=== PATIENT | female | born 1995 | race Hispanic/Latino ===

== ENCOUNTER → 2019-09-21 | Outpatient (CLI) | payer OTHER ==
[~2019-09-21] MED LIST: PRILOSEC OTC20 MG PO
--- NOTE | 2019-09-21 10:23 | Diagnostic Imaging Report ---
EXAM: US ABDOMEN COMPLETE DATE: 09/21/2019 8:23 AM INDICATION: Abdominal pain COMPARISON: None FINDINGS: The visualized pancreas appears unremarkable. The liver is normal in size measuring 12.7 cm in length. Hepatic echogenicity is within normal limits. No focal hepatic abnormalities identified. The main portal vein is patent with antegrade flow and diameter 1.3 cm. The gallbladder is unremarkable. There is no evidence for cholelithiasis, gallbladder wall thickening, or pericholecystic fluid. There is no intra or extra hepatic biliary ductal dilatation. The common bile duct measures 3 mm. Sonographic Cordon's sign is negative. The spleen is normal in size measuring 11.5 cm in length and demonstrates an unremarkable sonographic appearance. The kidneys are normal in size measuring 11.3 cm is in length on the right and 10.9 cm in length on the left. Cortical thickness and echogenicity are within normal limits. There is no evidence for solid renal mass, hydronephrosis, or shadowing calculi. The visualized portions the IVC and aorta are within normal limits. There is no ascites visualized. IMPRESSION: Unremarkable abdominal ultrasound examination. Signed by: Dr. Justin Grajeda MD on 09/21/2019 10:20 AM
== END ==
LOC: US 08:11
PROVIDERS: ATTEND Internal Medicine Gastroenterology
DX: R10.10 Upper abdominal pain, unspecified (principal)
CPT/HCPCS: 76700

== ENCOUNTER → 2019-09-22 | Day surgery (SDC) | payer OTHER ==
[~2019-09-22] MED LIST changes: +FENTANYL CITRATE/PF 100MCG/2 ML INJ ONE; +METOCLOPRAMIDE HCL 10 MG/2ML VIAL ONE; +MIDAZOLAM HCL 2 MG/2 ML VIAL ONE; +PANTOPRAZOLE 40 MG 10ML VIAL ONE; +PROPOFOL IV EMULSION 10 MG/ML 50 ML VIAL ONE; +SODIUM CHLORIDE 0.9% INJ 10 ML VIAL ONE
[2019-09-22 12:10] VITALS: BP 123/76
--- OUTSIDE RECORDS SUMMARY | 2019-09-30 11:17 | XMS REPORT ---
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 Allergies, Adverse Reactions, Alerts Allergy Name Allergy Type Status Severity Reaction(s) Onset Date Inactive Date Treating Clinician Comments No Known Allergies DA Active U 2018-10-13 00:00:00 No Known Allergies DA Active U 2018-03-04 00:00:00 Medications This patient has no known medications. Results Test Description Test Time Test Comments Text Results Atomic Results Result Comments US ABDOMEN COMPLETE 2019-09-21 10:17:00 [facility] [address] [place] [id number] Patient Name: FITZ ALVAREZ MR #: [id number] : 1995 Age/Sex: 24/F Req #: [id number] Adm Physician: Ordered by: SARAH MORRISON MD Report #: [id number] Location: US Room/Bed: Procedure: [id number] US/US ABDOMEN COMPLETE Exam Date: 09/21/19 Exam Time: 0834 REPORT STATUS: Signed EXAM: US ABDOMEN COMPLETE DATE: 09/21/2019 8:23 AM INDICATION: Abdominal pain COMPARISON: None FINDINGS: The visualized pancreas appears unremarkable. The liver is normal in size measuring 12.7 cm in length. Hepatic echogenicity is within normal limits. No focal hepatic abnormalities identified. The main portal vein is patent with antegrade flow and diameter 1.3 cm. The gallbladder is unremarkable. There is no evidence for cholelithiasis, gallbladder wall thickening, or pericholecystic fluid. There is no intra or extra hepatic biliary ductal dilatation. The common bile duct measures 3 mm. Sonographic Cordon's sign is negative. The spleen is normal in size measuring 11.5 cm in length and demonstrates an unremarkable sonographic appearance. The kidneys are normal in size measuring 11.3 cm is in length on the right and 10.9 cm in length on the left. Cortical thickness and echogenicity are within normal limits. There is no evidence for solid renal mass, hydronephrosis, or shadowing calculi. The visualized portions the IVC and aorta are within normal limits. There is no ascites visualized. IMPRESSION: Unremarkable abdominal ultrasound examination. Signed by: Dr. Justin Grajeda MD on 09/21/2019 10:20 AM Dictated By: JUSTIN GRAJEDA MD 1020 Transcribed By: FELI on 09/21/19 1020 COPY TO: SARAH MORRISON MD
--- NOTE | 2019-11-07 12:27 | Operative Report ---
DATE OF PROCEDURE: 09/22/2019 SURGEON: Thaddeus Phelps MD PROCEDURE: EGD with biopsies. INDICATIONS FOR PROCEDURE: Upper abdominal pain, bloating, nausea, and vomiting. MEDICATIONS: The patient was done under MAC, please see anesthesiologist's note. PROCEDURE IN DETAIL: With the patient in the left lateral decubitus position, a flexible fiberoptic Olympus gastroscope was introduced into the esophagus under direct visualization without any difficulty. There was some concentric rings and longitudinal furrows in the esophagus and biopsies were obtained to rule out eosinophilic esophagitis. The scope was then advanced with ease into the stomach and mucosa overlying the antrum and the body revealed some patchy erythema and low-grade to moderate edema, and biopsies were obtained and sent to stain for H. pylori. Pylorus was of normal contour and shape, was intubated with ease and the scope was advanced all the way to the second portion of the duodenum. Biopsies were obtained from the proximal second portion and duodenal bulb to rule out sprue. The scope was then withdrawn back into the stomach and retroflexed, mucosa overlying the fundus and the cardia appeared to be within normal limits. The scope was then straightened out, it was subsequently withdrawn, and the patient tolerated the procedure well. IMPRESSION: 1. Rule out eosinophilic esophagitis. 2. Gastritis, biopsied, biopsies sent to stain for Helicobacter pylori. 3. Rule out sprue. PLAN: Follow up histology. Initiate Protonix 40 mg 1 p.o. q.a.m. before meals. Thaddeus Phelps MD [facility] [place] [place] /[id number] cc: Clint Bansal MD
== END | disposition home or self-care (01) ==
LOC: OR 08:04
PROVIDERS: ATTEND Internal Medicine Gastroenterology
DX: K29.70 Gastritis, unspecified, without bleeding (principal); K21.9 Gastro-esophageal reflux disease without esophagitis; K59.00 Constipation, unspecified
CPT/HCPCS: 43239; 81025; C9113; J2250; J2704; J2765; J3010